=== PATIENT | female | born 1965 | race Caucasian/White ===

== ENCOUNTER → 2017-04-18 | Outpatient (CLI) | payer OTHER ==
[~2017-04-18] MED LIST: IBUP1TAB5 PO; TOPI100 PO; TURM500C PO
[2017-04-18 14:45] LABS: AUTOMATED NEUTROPHIL # 4.3 TH/MM3 (1.8-7.7); BASOPHIL # 0.1 TH/MM3 (0-0.2); EOSINOPHIL # 0.2 TH/MM3 (0-0.4); EOSINOPHIL % 3.7 % (0.0-4.0); HEMATOCRIT 37.4 % (39.0-51.0); HEMO FLAGS DIFF FINAL; LYMPHOCYTE # 1.5 TH/MM3 (1.0-4.8); MEAN CELL VOLUME 90.4 FL (80.0-100.0); MEAN CORPUSCULAR HEMOGLOBIN 29.9 PG (27.0-34.0); MEAN CORPUSCULAR HGB CONC 33.1 % (32.0-36.0); MONO % 9.1 % (0.0-8.0); NEUT % 64.2 % (16.0-70.0); PLATELET COUNT 247 TH/MM3 (150-450); RED BLOOD COUNT 4.14 MIL/MM3 (4.50-5.90); RED CELL DISTRIBUTION WIDTH 12.7 % (11.6-17.2); WHITE BLOOD COUNT 6.7 TH/MM3 (4.0-11.0)
--- NOTE | 2017-04-19 14:27 | EKG ---
Date Performed: 04/18/2017 Time Performed: 14:35:09 PTAGE: 51 years EKG: Sinus rhythm POSSIBLE RIGHT VENTRICULAR CONDUCTION DELAY BORDERLINE ECG NO PREVIOUS TRACING DOCTOR: Cale Mata Interpretating Date/Time 04/19/2017 14:20:37
== END ==
LOC: EDSEX → PHPRE 13:46
PROVIDERS: ATTEND Orthopaedic Surgery
DX: Z01.810 Encounter for preprocedural cardiovascular examination (principal); Z01.812 Encounter for preprocedural laboratory examination; S83.242A Other tear of medial meniscus, current injury, left knee, initial encounter; X58.XXXA Exposure to other specified factors, initial encounter; R94.31 Abnormal electrocardiogram [ECG] [EKG]
CPT/HCPCS: 36415; 85025; 93005

== ENCOUNTER → 2017-04-22 | Day surgery (SDC) | payer OTHER ==
[~2017-04-22] VITALS: Ht 165.1 cm; Wt 66.0 kg
[~2017-04-22] MED LIST changes: +ACETAMINOPHEN 1000 MG/100 ML 100 ML IV ONE; +BUPIVACAINE/EPINEPHRINE 0.5% PF 10 ML VIAL ONE; +CHLORHEXIDINE GLUCONATE 2 % 1 PACK (2 CLOTHS) TOPICAL PRN; +CHLORHEXIDINE GLUCONATE 4% SOLN 120 ML BTL TOPICAL SCH; +DEXAMETHASONE SOD PHOS 4 MG/ML VIAL ONE; +FAMOTIDINE 20 MG/2 ML VIAL ONE; +KETOROLAC TROMETHAMINE 30 MG/ML (IVP) VIAL ONE; +LACTATED RINGER'S 1000 ML IV PRN; +METOPROLOL TARTRATE 25 MG TAB PO PRN; +MIDAZOLAM HCL 2 MG/2 ML VIAL ONE; +POVIDONE IODINE 5% (ANTISEPSIS KIT) 4 APPLICATIONS EACH NARE PRN; +SODIUM CHLORID 0.9% 500 ML IV PRN; +TRIAMCINOLONE ACETONIDE 40 MG/ML VIAL ONE
[2017-04-22 10:10] VITALS: PULSE 64
[2017-04-22 12:10] VITALS: BP 100/56; PULSE 66; RESP 16; TEMP 97.8; O2SAT 100
--- NOTE | 2017-04-22 19:05 | MP ---
cc: CADEN ESTRADA M.D. DATE OF SURGERY 04/22/[address] Parminder Estrada PREOPERATIVE DIAGNOSIS Tear medial meniscus left knee joint. POSTOPERATIVE DIAGNOSIS 1. Tear medial meniscus left knee joint. 2. Post-traumatic arthritis medial compartment. PROCEDURE Subtotal medial meniscectomy with chondroplasty of medial compartment PROCEDURE IN DETAIL The patient was placed on the operating room table in the supine position and adequate general anesthesia was administered by the anesthesiologist. The patient's left knee was then prepped and draped in the usual sterile fashion. A time-out was called and the patient's name, procedure, location were fully confirmed. An Esmarch bandage was used to exsanguinate the left lower extremity and a pneumatic tourniquet was inflated to 300. An anterolateral portal was used for introduction of the scope and an anteromedial portal used for instrumentation. The joint was distended with lactated Ringer's solution. A systematic examination of the knee joint revealed unremarkable suprapatellar pouch and patellofemoral joint. The intercondylar fossa revealed obvious fraying and maybe even some partial tearing of the anterior cruciate ligament, but otherwise it was intact along with the posterior cruciate. The medial compartment was entered and initially it appeared to be normal with regards to the middle third and anterior third. As we placed it intercondylar, we were able to now localize a transverse tear extending into the posterior horn with a mobile and unstable posterior horn remaining that measured approximately 1 cm. This was then excised with multiple instruments including motorized aggressive resectors as well as hand instruments and the meniscus was then balanced as far medially as needed. The articular surface of the medial femoral condyle was severely eroded in that same area and there was already exposure of subchondral bone. This involved only the area above the posterior horn tear. Attention was turned to the lateral compartment. The lateral meniscus and articular surfaces were pristine in condition without any evidence of trauma or tearing of the meniscus. After all instruments were removed and after we aspirated the joint fully, the two stab wounds were closed with 3-0 nylon simple suture. An intra-articular injection through the lateral portal was carried out with 1 mL of 40 mg Kenalog along with 10 mL of 0.5% Marcaine with epinephrine. Xeroform gauze was applied over both wounds and a bulky dressing applied over this. Sponge count, needle counts were reportedly correct x2. Tourniquet was deflated and examination of the foot revealed an adequate return of circulation. Estimated blood loss was nil. The patient was transferred to the recovery room in satisfactory condition. MD MEJIA Laboy/ /10:31 AM /6:59 PM
== END | disposition home or self-care (01) ==
LOC: EDSEX 07:01 → PHSDC 07:01 → EDUNIT# 09:15
PROVIDERS: ATTEND Orthopaedic Surgery
DX: S83.242A Other tear of medial meniscus, current injury, left knee, initial encounter (principal); M17.32 Unilateral post-traumatic osteoarthritis, left knee
CPT/HCPCS: 01400; 29881; J0131; J1100; J1885; J2250; J3301; J7120